=== PATIENT | male | born 1965 | race Hispanic/Latino ===

== ENCOUNTER 2021-10-16 12:08 | Emergency (ER) | payer SELFPAY ==
[2021-10-16 12:09] VITALS: BP 160/92; PULSE 102; RESP 16; TEMP 36.4; O2SAT 100; BMI 37.4
--- NOTE | 2021-10-16 12:23 | EDS_ITS ---
HPI History of Present Illness Chief Complaint: Dizziness Detail of Chief Complaint: Lightheadedness resolved Informant: patient Onset/Context/Timing Onset: Today Context: Sudden Onset Timing: Continuous Current Severity: Gone Maximum Severity: Mild Narrative Narrative: 56-year-old male history of diabetes and hypertension. Says today about 30 minutes ago he said he just felt generalized weakness and lightheadedness almost like he was dizzy. Said it came on all of a sudden. He did eat breakfast around 1030 he had eggs and coffee. Did not check his blood sugar when it happened. Denies any headache, chest pain or abdominal pain. No nausea vomiting or diarrhea. No melena. No recent illness or fever. Denied feeling his heart racing or beating awkwardly. Says he is feeling much better now. He denies any cardiac history. He had a stress test 3 years ago was negative. Denies any recent illness or hospitalization. Prior similar symptoms: No Recent Illness/Hospitalization: No PFSH PFS Medical History (Updated 10/16/21 @ 13:[address] Grant Villafana MD) Anxiety Diabetes Hypertension Allergy/AdvReac Type Severity Reaction Status Date / Time No Known Allergies Allergy Verified 10/16/21 12:11 Social History Smoking Status: Never smoker ROS ROS ED ROS Narrative Denies recent illness. Review of Systems ROS Unobtainable: Denies due to encephalopathy Constitutional Constitutional ED: Denies chills Eyes Eyes: Denies blurry vision ENT ENT ED: Denies ear pain Cardiovascular Cardiovascular: Denies chest pain Respiratory/Chest Respiratory/Chest: Denies cough Gastrointestinal Gastrointestinal: Denies abdominal pain Genitourinary Genitourinary ED: Denies dysuria Musculoskeletal Musculoskeletal: Denies arthralgias Integumentary Denies abscess Neurologic Neurologic: Denies headache(s) Psychiatric Psychiatric: Denies anxiety Endocrine Endocrinology: Denies cold intolerance Hematologic/Lymphatic Hematologic/Lymphatic: Reports none Allergic/Immunologic Allergic/Immunologic ED: Denies mouth swelling or tongue swelling EXAM Physical Exam Narrative Exam Narrative: Well-appearing middle-age male. Vital signs are stable afebrile. Pulse ox high percent room air no signs hypoxia. H EENT exam unremarkable. Moist Riis membranes. No facial droop. Normal speech. Neck nontender no JVD. No lymphadenopathy. Lungs clear to auscultation. Heart regular rhythm rate about 100 no murmur. Chest wall nontender. Abdomen soft nontender. Moving all 4 extremities. Equal symmetrical radial pulses. 5/5 inventory management specialist strength bilaterally. Dorsi plantarflexion intact. Calves nontender without edema. Neurologically is awake alert with no focal motor deficits. NIH is 0. Normal speech. Back nontender. Normal exam. Const Vital Signs: 10/16/21 12:09 10/16/21 12:30 10/16/21 12:30 Temperature 97.6 F L Temperature Source Temporal Pulse Rate 102 H Respiratory Rate 16 Respiratory Effort Normal Respiratory Pattern Normal Blood Pressure 160/92 H Blood Pressure Mean 114 Pulse Ox 100 Oxygen Delivery Method Room Air Room Air 10/16/21 12:34 Temperature Temperature Source Pulse Rate 100 Respiratory Rate 15 Respiratory Effort Respiratory Pattern Blood Pressure 122/79 H Blood Pressure Mean 93 Pulse Ox 98 Oxygen Delivery Method Room Air Positive well nourished, well developed and obese; Negative for cachectic, contractures or unkempt General Appearance ED: well developed and NAD; Negative for unkempt, cachectic, contractures, cyanotic or diaphoretic Nutritional Appearance: obese; Negative for cachectic HEENT Reports moist mucous membranes; Denies dry mucous membranes Negative for trauma or tenderness Mouth ED: No dry mucous membranes Mouth: No dry mucous membranes Eyes PERRL and EOMs intact bilaterally General Eye ED: Negative for pale conjunctiva or scleral icterus Neck no lymphadenopathy, supple and no JVD General: Negative for tenderness Lymph Lymphatic: Negative for other Chest Wall inspection of chest normal and palpation of chest normal Resp normal respiratory effort and clear to auscultation bilaterally Effort and Inspection: Negative for retractions or pain with movement Auscultation: Negative for rales, rhonchi or wheezes Cardio regular rate, regular rhythm, S1 normal heart sound, S2 normal heart sound and no murmurs GI normal to inspection, nondistended, normoactive bowel sounds, non-tender, non- distended and no masses Inspection: Negative for abdominal distention Auscultation: normoactive bowel sounds Palpation: soft; Negative for tender or guarding Back/Spine no CVA tenderness General Back: Negative for CVA tenderness Cervical Spine: Negative for cervical spine tenderness Thoracic Spine / Upper Back: Negative for thoracic spinal tenderness Lumbar Spine / Lower Back: Negative for lumbar spinal tenderness Extremity normal to inspection General Extremety ED: Negative for edema or tenderness General Extremity: Negative for edema Neuro oriented x3 and CN's II-XII intact bilaterally Sensorium / Orientation: alert; Negative for orientation impaired, lethargic or stuporous Motor Exam: strength 5/5 throughout Psych mental status grossly normal Appearance: Negative for unkempt Attitude: No agitated Mood & Affect: Negative for depressed, anxious or tearful Skin no rashes or lesions noted and no wounds General Skin Exam: Negative for elasticity normal Rashes: No rashes noted Trauma: Negative for abrasion Wounds: Negative for wounds noted MDM MDM MDM Narrative Medical decision making narrative: 56-year-old male with onset of generalized weakness and lightheadedness. He has a normal exam now and his symptoms have almost totally resolved. He will undergo a cardiac work-up. Currently there is no signs he needs a CAT scan. His symptoms were bilateral in general. He has a normal neurologic exam. Screening labs EKG and chest x-ray will be obtained. Repeat exam patient is doing well. His exam is normal. His work-up is negative. His history has no specific concerning factors. He will be discharged home with outpatient follow-up. Lab Data Attestation: I reviewed the patient's lab results. Lab results narrative: CBC shows a white count of 6. H&H 14 and 43. Platelets 280. Electrolytes show sodium 134 gap is 6 normal BUN and creatinine. Glucose 196. Troponin is normal at 5. Labs: Laboratory Results - last 24 hr 10/16/21 10/16/21 12:32 12:32 WBC 6.1 RBC 5.13 Hgb 14.2 Hct 43.7 MCV 85.2 MCH 27.7 MCHC 32.5 RDW Std Deviation 40.4 RDW Coeff of Jeremías 13.0 Plt Count 280 MPV 9.3 Immature Gran % (Auto) 0.300 Neut % (Auto) 62.2 Lymph % (Auto) 24.6 [place] % (Auto) 11.4 H Eos % (Auto) 1.0 Baso % (Auto) 0.5 Absolute Neuts (auto) 3.8 Absolute Lymphs (auto) 1.49 Nucleated RBC % 0 Sodium 134 L Potassium 3.8 Chloride 100 Carbon Dioxide 28.0 Anion Gap 6 BUN 17 Creatinine 0.88 Estim Creat Clear Calc 86.60 Est GFR (MDRD) Af Amer 116 Est GFR (MDRD) Non-Af 96 BUN/Creatinine Ratio 19.3 Glucose 196 H Calcium 9.5 Troponin I High Sens 5 Radiography Chest X-Ray - ED: 1 View, Read by ED Physician, Heart, Lungs, Mediastinum, Bony Structures, No Acute Disease and Chronic Changes Diagnostic Testing: Clinical Impression(s) from Imaging Studies Chest X-Ray 10/16/21 12:40 IMPRESSION: No acute abnormality is seen. Electronically Signed: Cody Dow MD at 13:10 EDT , Chest pain, portable, single view interpreted by myself shows no acute a bnormality. Normal cardiac silhouette. Normal lung youssef. Chronic changes. Rhythm Strip Rhythm Strip: Sinus Rhythm Rate: 99 Ectopy: None EKG Initial EKG: Attestation: I personally reviewed and interpreted this EKG as follows: Interpretation: Sinus Rhythm and No Acute Injury Pattern Comments: Normal sinus rhythm rate of 99. No acute signs of IL or ischemia. Discharge Plan Triage Chief Complaint: Dizziness ED Provider: Grant Villafana Dx/Rx/DC Orders Clinical Impression: Dizziness, History of diabetes mellitus, History of chronic hypertension Instructions: ED Dizziness, Uncertain Cause, ED Near-Fainting, Uncertain Cause Primary Care Provider: Audra Dean Referrals: [facility] Doctor,Out of [NON-STAFF] - 1 Week Activity Restrictions/Additional Instructions: All your test and exam today were normal. Follow-up with your primary care physician. If you feel worse return. Disposition Disposition: Home, Self Care
--- NOTE | 2021-10-16 12:33 | EKG12_ITS ---
Test Reason : DIZZINESS Blood Pressure : / mmHG Vent. Rate : 099 BPM Atrial Rate : 099 BPM P-R Int : 178 ms QRS Dur : 084 ms QT Int : 346 ms P-R-T Axes : 022 064 022 degrees QTc Int : 444 ms Normal sinus rhythm Normal ECG Confirmed by SALLY BILLS, JOSE M ([id number]), pictures editor YARA HOYOS ([id number]) on 10/18/2021 2:14:47 PM Referred By: MIKE Confirmed By:LOLY ZAVALA MD
[2021-10-16 12:34] VITALS: BP 122/79; PULSE 100; RESP 15; O2SAT 98
[2021-10-16 12:37] LABS: Absolute Lymphocyte Count 1.49 X10^3/uL (0.83-4.51); Absolute Neutrophil Count 3.8 X10^3/uL (2.0-7.7); Basophil# 0.03 X10^3/uL; Basophil% 0.5 % (0-1); Eosinophil# 0.06 X10^3/uL; Hematocrit 43.7 % (40-54); Hemoglobin 14.2 g/dL (13.0-16.5); Lymphocyte # 1.49 X10^3/ul (0.83-4.51); Lymphocyte % 24.6 % (19-41); Mean Corp Hgb Conc 32.5 g/dL (32-36); Mean Corpuscular Hgb 27.7 pg (27.0-32.0); Mean Corpuscular Volume 85.2 fL (80-94); Mean Platelet Vol. 9.3 fl (6.2-12.0); Monocyte# 0.69 X10^3/uL; Monocyte% 11.4 % (0-10); NRBC Flagged by Analyzer 0 % (0-5); Neutrophil # 3.77 X10^3/uL (2.7-7.7); Neutrophil % 62.2 % (47-70); Platelet Count 280 K/mm3 (150-450); RBC Distribution Width SD 40.4 fl (35.1-43.9); Red Blood Count 5.13 M/mm3 (4.6-6.2); White Blood Count 6.1 K/mm3 (4.4-11.0)
--- NOTE | 2021-10-16 12:40 | RAD_ITS ---
STUDY: X-RAY CHEST REASON FOR EXAM: Male, 56 years old. Chest pain TECHNIQUE: Single AP portable view of the chest. COMPARISON: None. FINDINGS: EKG atelectasis are seen. The lungs are clear and expanded. There is no demonstrated pleural abnormality. Normal size heart. Normal mediastinum and kia. Normal visualized pulmonary arteries. Normal visualized aortic arch and descending thoracic aorta. There are degenerative changes of the visualized thoracic spine. Normal visualized ribs, clavicles, and shoulders. There is no demonstrated abnormality of the visualized soft tissue structures of the upper abdomen. RAD/Chest 1 View (Portable) IMPRESSION: No acute abnormality is seen. Electronically Signed: Cody Dow MD at 13:10 EDT ,
[2021-10-16 12:53] LABS: Anion Gap 6 (5-15); BUN 17 mg/dL (7-18); BUN/Creat Ratio 19.3 RATIO (10-20); Calcium,Total 9.5 mg/dL (8.5-10.1); Chloride 100 mmol/L (98-107); Creatinine, Serum 0.88 mg/dL (0.70-1.30); EST Glomerular Filtration Rate 96 mL/min (>60); Est Glom Filt Rate - Afr Amer 116 mL/min (>60); Glucose 196 mg/dL (74-106); Potassium 3.8 mmol/L (3.5-5.1); Sodium Level 134 mmol/L (136-145); Troponin-I HS (w/2H Reflex) 5 pg/mL (3.0-78.0)
[2021-10-16 13:28] VITALS: BP 134/69; PULSE 71; RESP 15; O2SAT 98
[2021-10-16 14:34] LABS: Reflex Troponin-HS? (from REC) Y
== END 2021-10-16 13:29 | disposition home or self-care (01) ==
PROVIDERS: Emergency Provider Emergency Medicine; PCP Family Medicine; Visit Provider Emergency Medicine
DX: R42 Dizziness and giddiness (principal); E11.9 Type 2 diabetes mellitus without complications; I10 Essential (primary) hypertension; R53.1 Weakness
CPT/HCPCS: 71045; 80048; 84484; 85025; 93005; 99284